=== PATIENT | female | born 1950 | race Caucasian/White ===

== ENCOUNTER 2021-08-25 06:36 | Inpatient (IN) | payer MEDICARE ==
[2021-08-19 16:50] LABS: BASOPHILS # (AUTO) 0.1 X10'3 (0-0.2); EOSINOPHILS # (AUTO) 0.2 X10'3 (0-0.9); EOSINOPHILS % (AUTO) 3.5 % (0-6); LYMPHOCYTES # (AUTO) 1.4 X10'3 (1.1-4.8); LYMPHOCYTES % (AUTO) 25.8 % (21-51); MEAN CORPUSCULAR HGB CONC 32.5 g/dL (33.0-36.5); MEAN CORPUSCULAR VOLUME 92.5 FL (78-98); MEAN PLATELET VOLUME 8.2 FL (7.4-10.4); MONOCYTES # (AUTO) 0.6 X10'3 (0-0.9); MONOCYTES % (AUTO) 11.5 % (2-12); NEUTROPHILS # (AUTO) 3.3 X10'3 (1.8-7.7); NEUTROPHILS % (AUTO) 58.2 % (42-75); PRE OP HEMATOCRIT 40.3 % (35.0-45.0); PRE OP HEMOGLOBIN 13.1 g/dL (12.0-16.0); PRE OP PLATELET COUNT 274 X10'3 (140-440); RED BLOOD COUNT 4.36 X10'6 (4.20-5.60); RED CELL DISTRIBUTION WIDTH 14.2 % (11.5-14.5)
[2021-08-19 17:07] LABS: ALBUMIN 3.9 G/DL (3.4-5.0); ALBUMIN/GLOBULIN RATIO 1.2 (1.1-1.5); ALKALINE PHOSPHATASE 68 IU/L (46-116); BLOOD UREA NITROGEN 19 MG/DL (7-18); CALCIUM 9.5 MG/DL (8.5-10.1); CHLORIDE 104 MMOL/L (99-107); CREATININE 0.73 MG/DL (0.40-0.90); PRE OP ALT 15 U/L (30-65); PRE OP ANION GAP 10 (8-16); PRE OP AST 13 U/L (10-37); PRE OP BILIRUB, TOTAL 0.2 MG/DL (0.0-1.0); PRE OP GLUCOSE 80 MG/DL (70-104); PRE OP POTASSIUM 4.2 MMOL/L (3.4-5.1); PRE OP SODIUM 142 MMOL/L (135-145); TOTAL PROTEIN 7.1 G/DL (6.4-8.2); eGFR 79 ML/MIN
[2021-08-25] VITALS (13 sets, daily range): BP systolic 89–158; BP diastolic 51–90
[~2021-08-25] VITALS: Ht 162.6 cm; Wt 63.5 kg
[~2021-08-25 06:36] MED LIST: ACET-2615 PO; CAPS1ADH11 TOP; DICL387C TOP; GABA-530 PO; IBUP-1986 PO; IBUP-2803 PEG; IBUP-2803 PO; TIZA4CAP PO; VANCOMYCIN INJ 1000 MG in NORMAL SALINE 200ml IV.SOLN IV ONE; [UNRECOGNIZED DRUG - CODE] PO; acetaminophen 325mg tablet PO ONE; cefazolin/dext.iso 2gm/50ml IV ONE; celeCOXIB 100mg capsule PO ONE; famotidine 20mg tablet PO ONE; gabapentin 300mg capsule PO ONE; metoclopramide 5 mg/ml inj IV ONE; oxyCODONE SR 10mg (sust. release) tab -2 tabs (20mg) PO ONE; ringers solution, lacted 1,000 ML IV SCH; tranexamic acid inj. 1,000 MG in 0.7% saline 100 ML PMX IV ONE
[2021-08-25] MEDS ORDERED: diphenhydrAMINE 25mg capsule PO PRN ×2 (06:45)
[2021-08-25] MEDS ORDERED: bisacodyl 10mg suppository rectal RC PRN (06:45)
[2021-08-25] MEDS ORDERED: HYDROmorphone 1 mg/ml syringe IV PRN (06:45)
[2021-08-25] MEDS ORDERED: HYDROcodone/acetaminophen 10/325mg tab PO PRN (06:45)
[2021-08-25] MEDS ORDERED: HYDROmorphone inj. 0.5 MG/0.5 ML DISP.SYRIN IV PRN (06:45)
[2021-08-25] MEDS ORDERED: acetaminophen 325mg tablet PO PRN (06:45)
[2021-08-25] MEDS ORDERED: magnesium hydroxide 30ml (MOM) UD suspension PO PRN (06:45)
[2021-08-25] MEDS ORDERED: ondansetron/PF 4mg/2ml inj IV PRN ×2 (06:45→09:20)
[2021-08-25] MEDS ORDERED: ROPIVAcaine 0.5% (5mg/ml) 30ml vial ONE (09:06)
[2021-08-25] MEDS ORDERED: cloNIDine hcl/PF 100mcg/ml inj ONE (09:06)
[2021-08-25] MEDS ORDERED: epiNEPHrine 1 mg/ml inj ONE (09:06)
[2021-08-25] MEDS ORDERED: vancomycin 1,000mg inj ONE (09:06)
[2021-08-25] MEDS ORDERED: ketorolac trometh. 30mg/ml inj. ONE (09:06)
[2021-08-25] MEDS ORDERED: ringers solution, lacted 1,000 ML IV SCH (09:20)
[2021-08-25] MEDS ORDERED: proCHLORperazine 10 MG/2 ml inj IV PRN (09:20)
[2021-08-25] MEDS ORDERED: morphine 4 MG/ML inj SYRINge IV PRN (09:20)
[2021-08-25] MEDS ORDERED: meperidine/PF 25mg/ml syringe IV PRN ×3 (09:20)
[2021-08-25] MEDS ORDERED: morphine 2 MG/ML inj. syringe IV PRN (09:20)
[2021-08-25] MEDS ORDERED: FENTANYL CITRATE/PF 50 MCG/1 ML VIAL ONE (09:30)
[2021-08-25] MEDS ORDERED: MIDAZolam 1 MG/ML 5ML VIAL ONE (09:30)
[2021-08-25] MEDS ORDERED: LIDOcaine 1%/PF 5ML 10 MG/ML VIAL ONE (09:32)
[2021-08-25] MEDS ORDERED: propofol inj 20 ML IV ONE (09:32)
[2021-08-25] MEDS ORDERED: ePHEDrine 50MG/ML INJ. ONE (10:50)
--- NOTE | 2021-08-25 10:54 | NUR ---
Received from OR via BED , accompanied by Anesthesiologist DR. AGUILAR and report given by Anesthesiolgist. PATIENT ON ROOM AIR. VSS. 20 GAUGE IN LEFT ARM. LEG IMMOBILIZER BRACE ON LEFT UPPER EXTREMITY. DRESSING ON LEFT HIP WITH GEMMA VAC.SCD ON RIGHT LEG. POSITIVE PEDAL PULSES. LR @ 100. Addendum: 08/25/21 at 1118 by Argenis Goldberg RN Amended: Links added.
[2021-08-25] MEDS: HYDROcodone/acetaminophen 10/325mg tab PO PRN ×2 (12:46→20:07)
[2021-08-25] MEDS: ascorbic acid 500mg tablet PO SCH ×2 (12:47→20:08)
[2021-08-25] MEDS: multivitamins, therapeutics tablet PO SCH (12:47)
[2021-08-25] MEDS: aspirin 325mg tablet PO SCH (12:47)
[2021-08-25] MEDS: potassium cl 20mEq in 1/2 NS 1,000 ML IV SCH ×3 (13:31→22:45)
[2021-08-25] MEDS ORDERED: NORMAL SALINE IV ONE (14:00)
[2021-08-25] MEDS ORDERED: TRANEXAMIC ACID IV ONE (14:00)
[2021-08-25] MEDS: ceFAZolin/D5W- 1GM premix 50 ML IV SCH (16:00)
--- NOTE | 2021-08-25 18:30 | NUR ---
Patient in room [facility]. I have received report from KIRA BENSON and had the opportunity to ask questions and assume patient care.
[2021-08-25] MEDS ORDERED: VANCOMYCIN 1GM/200ML IVPB 200 ML IV SCH (20:00)
[2021-08-25] MEDS: cyclobenzaprine 10mg tablet PO SCH (20:07)
[2021-08-25] MEDS: gabapentin 300mg capsule PO SCH (20:08)
[2021-08-25] MEDS ORDERED: sennosides 8.6mg tablet PO SCH (21:00)
[2021-08-26] VITALS: BP 121/46
[2021-08-26] MEDS: HYDROcodone/acetaminophen 10/325mg tab PO PRN ×2 (00:25→05:47)
[2021-08-26] MEDS: ceFAZolin/D5W- 1GM premix 50 ML IV SCH (00:26)
[2021-08-26] MEDS: potassium cl 20mEq in 1/2 NS 1,000 ML IV SCH ×2 (02:06→14:48)
[2021-08-26 04:00] VITALS: BP 104/52
[2021-08-26 05:59] LABS: BASOPHILS % (AUTO) 0.3 % (0-1); EOSINOPHILS # (AUTO) 0.1 X10'3 (0-0.9); HEMATOCRIT 32.2 % (35.0-45.0); HEMOGLOBIN 10.7 g/dl (12.0-16.0); LYMPHOCYTES # (AUTO) 0.9 X10'3 (1.1-4.8); LYMPHOCYTES % (AUTO) 15.5 % (21-51); MEAN CORPUSCULAR HEMOGLOBIN 30.7 PG (27.0-31.0); MEAN CORPUSCULAR HGB CONC 33.1 g/dL (33.0-36.5); MEAN CORPUSCULAR VOLUME 92.6 FL (78-98); MEAN PLATELET VOLUME 8.1 FL (7.4-10.4); MONOCYTES # (AUTO) 0.8 X10'3 (0-0.9); MONOCYTES % (AUTO) 12.5 % (2-12); NEUTROPHILS # (AUTO) 4.3 X10'3 (1.8-7.7); NEUTROPHILS % (AUTO) 70.7 % (42-75); PLATELET COUNT 208 X10'3 (140-440); RED BLOOD COUNT 3.47 X10'6 (4.20-5.60); RED CELL DISTRIBUTION WIDTH 13.6 % (11.5-14.5); WHITE BLOOD COUNT 6.1 X10'3 (4.5-11.0)
[2021-08-26 06:07] LABS: ANION GAP 3 (8-16); CHLORIDE 102 MMOL/L (99-107); POTASSIUM 4.7 MMOL/L (3.5-5.1); SODIUM 133 MMOL/L (135-145); TOTAL CARBON DIOXIDE 27.8 MMOL/L (24-32)
--- NOTE | 2021-08-26 06:14 | NUR ---
Problems reprioritized. Patient report given, questions answered & plan of care reviewed with KIRA BENSON.
[2021-08-26 07:51] VITALS: BP 112/49
[2021-08-26] MEDS: multivitamins, therapeutics tablet PO SCH (08:10)
[2021-08-26] MEDS: aspirin 325mg tablet PO SCH (08:10)
[2021-08-26] MEDS: gabapentin 300mg capsule PO SCH (08:10)
[2021-08-26] MEDS: ascorbic acid 500mg tablet PO SCH (08:10)
[2021-08-26] MEDS: cyclobenzaprine 10mg tablet PO SCH ×2 (08:11→12:42)
--- NOTE | 2021-08-26 09:22 | NUR ---
Joint Surgery Consult: Pt s/p L hip surgery this admit. Pt seen by SUGEY for written/verbal high protein ed w/ RD contact information provided. PT reports doing "keto" diet at home though actually just lower CHO diet. SUGEY reinforced importance of carb intake as macronutrient and for wound healing. RD encouraged pt to contact dietitian's office if further questions/concerns. Addendum: 08/26/21 at [address] Amended: Links added. Addendum: 08/26/21 at [address] *Patient reports not PT*
[2021-08-26 11:00] VITALS: BP 101/58
[2021-08-26] MEDS ORDERED: celeCOXIB 100mg capsule PO SCH (20:00)
== END 2021-08-26 14:30 | disposition home or self-care (01) | DRG 470 ==
LOC: PAS 06:36 → PAS IN 06:44 → SUR 3N 12:20
PROVIDERS: ADMIT Orthopaedic Surgery; ATTEND Orthopaedic Surgery
PROC: 0SRB06Z Replacement of Left Hip Joint with Oxidized Zirconium on Polyethylene Synthetic Substitute, Open Approach (ICD-10-PCS; principal; 2021-08-25 09:32)
DX: M16.12 Unilateral primary osteoarthritis, left hip (principal); Z79.82 Long term (current) use of aspirin; Z79.899 Other long term (current) drug therapy
CPT/HCPCS: 36415; 72170; 80051; 80053; 82948; 85025; 86885; 86900; 86901; 87081; 97116; 97161; 97530; 97535; A7000; C1776; G0378; J0171; J0690; J0735; J1170; J1885; J2250; J2405; J2704; J2765; J2795; J3010; J3370; J3480; J3490; J7120; U0003; U0005